=== PATIENT | male | born 1995 | race Caucasian/White ===

== ENCOUNTER 2024-06-30 19:46 | Emergency (ER) | payer MEDICAID ==
[~2024-06-30] VITALS: Ht 177.8 cm; Wt 88.0 kg
[2024-06-30 20:04] VITALS: TEMP 98.8; O2SAT 95
[2024-06-30 20:30] VITALS: BP 130/70; PULSE 71; RESP 20
[2024-06-30] MEDS: IBUPROFEN 800MG TABLET PO ONE (20:30)
[2024-06-30] MEDS ORDERED: IBUP-2029 MT (21:21)
[2024-06-30] MEDS ORDERED: IBUPROFEN 400MG TABLET PO NR (22:45)
== END 2024-06-30 23:05 | disposition home or self-care (01) ==
LOC: ER 19:46
DX: S70.02XA Contusion of left hip, initial encounter (principal); S50.02XA Contusion of left elbow, initial encounter; S16.1XXA Strain of muscle, fascia and tendon at neck level, initial encounter; V29.99XA Rider (driver) (passenger) of other motorcycle injured in unspecified traffic accident, initial encounter; Y93.89 Activity, other specified; Y92.89 Other specified places as the place of occurrence of the external cause; Y99.8 Other external cause status
CPT/HCPCS: 71045; 73080; 73502; 99284